=== PATIENT | female | born 1975 | race Hispanic/Latino ===

== ENCOUNTER 2020-01-12 22:15 | Emergency (ER) | payer SELFPAY ==
[2020-01-12] MEDS ORDERED: HYDROcodone/Acetaminophen 5/325 mg Tablet ONE (22:27)
[2020-01-12] MEDS ORDERED: Ketorolac Tromethamine 30 MG/ML VIAL ONE (22:27)
--- NOTE | 2020-01-12 23:12 | RAD ---
LEFT WRIST 3 VIEWS: Date: 01/12/2020 HISTORY: Status post fall. FINDINGS: There is a fracture of the distal radius. Fractures of the transversely oriented component through th e fused epiphyseal plate and slightly displaced fragment at the radioulnar joint level. I do not see a definite interarticular component at the radiocarpal joint space. No ulnar fracture is seen. IMPRESSION: Distal radial fracture. POS: OFF
== END 2020-01-12 23:16 | disposition home or self-care (01) ==
LOC: ERS 22:15
DX: S52.502A Unspecified fracture of the lower end of left radius, initial encounter for closed fracture (principal); W19.XXXA Unspecified fall, initial encounter
CPT/HCPCS: 29125; 96372; J1885

== ENCOUNTER 2020-01-13 16:25 | Emergency (ER) | payer SELFPAY ==
[2020-01-13] MEDS ORDERED: HYDROcodone/Acetaminophen 10/325 mg Tablet ONE (17:14)
[2020-01-13] MEDS ORDERED: Ondansetron ODT 4 MG TAB ONE (17:14)
[2020-01-13] MEDS ORDERED: Ketorolac Tromethamine 30 MG/ML VIAL ONE ×2 (17:14→17:16)
== END 2020-01-13 18:20 | disposition home or self-care (01) ==
LOC: ERS 16:25
DX: M25.532 Pain in left wrist (principal); S52.502D Unspecified fracture of the lower end of left radius, subsequent encounter for closed fracture with routine healing; W01.0XXD Fall on same level from slipping, tripping and stumbling without subsequent striking against object, subsequent encounter
CPT/HCPCS: 96372; 99283; J1885; Q0162

== ENCOUNTER 2020-01-14 09:54 | Outpatient (CLI) | payer OTHER ==
[2020-01-15 10:34] LABS: SARS-CoV-2 MS2 Positive; SARS-CoV-2 N Gene Negative; SARS-CoV-2 S Gene Negative; SARS-CoV-2 by NAA Not Detected (NotDetected); SARS-CoV-2 orf1ab Negative
== END 2020-01-14 09:55 | disposition home or self-care (01) ==
LOC: LABBT 09:54
PROVIDERS: ATTEND Orthopaedic Surgery
DX: S52.502A Unspecified fracture of the lower end of left radius, initial encounter for closed fracture (principal); Z20.828 Contact with and (suspected) exposure to other viral communicable diseases
CPT/HCPCS: 87635; U0003

== ENCOUNTER 2020-01-17 09:48 | Day surgery (SDC) | payer SELFPAY ==
[2020-01-16 13:07] VITALS: BMI 31.3
[2020-01-17] MEDS ORDERED: Lidocaine 1% PF 5 ML VIAL ONE (09:52)
[2020-01-17] MEDS ORDERED: Dexamethasone 20 MG/5 ML VIAL ONE (09:52)
[2020-01-17] MEDS ORDERED: Ropivacaine 0.5% HCl/PF (150 MG/30 ML VIAL) ONE (09:52)
[2020-01-17] MEDS ORDERED: EPHEDRINE 25 MG/5 ML SYRINGE ONE (09:52)
[2020-01-17] MEDS ORDERED: Ropivacaine 0.2% HCl/PF (40 MG/20 ML VIAL) ONE (09:52)
[2020-01-17] MEDS ORDERED: PROPOFOL 200 MG/20 ML VIAL ONE (09:52)
[2020-01-17] MEDS ORDERED: Ondansetron PF 4 MG/2 ML Vial ONE (09:52)
[2020-01-17] MEDS ORDERED: Midazolam HCl 2 mg/2 ml Vial ONE (11:18)
[2020-01-17] MEDS ORDERED: Fentanyl 100 MCG/2 ML VIAL ONE (11:18)
[2020-01-17] MEDS ORDERED: HYDROcodone/Acetaminophen 10/325 mg Tablet PO PRN ×2 (12:00)
[2020-01-17] MEDS ORDERED: Ondansetron PF 4 MG/2 ML Vial IVP PRN (12:00)
[2020-01-17] MEDS ORDERED: Zolpidem Tartrate 5 MG TAB PO PRN (12:00)
[2020-01-17] MEDS ORDERED: traMADol HCl 50 MG TAB PO PRN ×2 (12:00)
[2020-01-17] MEDS ORDERED: Promethazine HCl 25 MG/ML VIAL IM PRN (12:00)
[2020-01-17] MEDS ORDERED: Ketorolac Tromethamine 30 MG/ML VIAL IVP PRN (12:00)
[2020-01-17] MEDS ORDERED: Ropivacaine 0.2% 550 ML 550 ML NERVE BLCK SCH (12:00)
[2020-01-17] MEDS ORDERED: Fentanyl 100 MCG/2 ML VIAL SLOW IVP PRN (12:01)
--- NOTE | 2020-01-17 13:28 | RAD ---
XR Wrist Lt 2 View History: ORIF Comparison: Radiograph January 12, 2020 Findings: Satisfactory postoperative appearance volar plate and screw fixation distal radius. Impression: Satisfactory postoperative appearance.
--- NOTE | 2020-01-17 17:53 | OP ---
DATE OF PROCEDURE: 01/17/2020 PREOPERATIVE DIAGNOSIS: Left distal radius fracture (3 fragments). POSTOPERATIVE DIAGNOSIS: Left distal radius fracture (3 fragments). PROCEDURE PERFORMED: Open reduction and internal fixation of left distal radius. ANESTHESIA: General. CARBONIZER TESTER: Laith Sheikh PA-C TOURNIQUET TIME: 48 minutes at 250 mmHg. IMPLANTS: Synthes 2.4 mm variable angle LCP two-column volar distal radius plate. COMPLICATIONS: None. DRAINS: None. SPECIMEN: None. OUTCOME: Satisfactory. INDICATIONS: Marilyn is a 44-year-old lady, status post fall on outstretched left wrist sustaining a mildly comminuted distal radius fracture with dorsal angulation and displacement. After discussion with the patient including risks and benefits, we decided to proceed with open reduction and internal fixation. Informed consent has been obtained. I believe all questions were answered. DESCRIPTION OF PROCEDURE: The patient was brought to the operating room and a time-out performed followed by induction of general anesthesia. A sterile prep and drape were performed of the left upper extremity. The wound was exsanguinated with Esmarch bandage, tourniquet inflated to 250 mmHg. A volar radial skin incision was made after skin was sharply incised. Dissection was carried down to the radial border of the flexor carpi radialis. Dissection was then carried down reflecting the flexor digitorum muscle to the midline. The underlying pronator quadratus was released off the radial border of the distal radius and reflected to the midline revealing the underlying fracture. Under direct visualization, the fracture was reduced to a near anatomic alignment. This was followed by application of a 2.4 mm variable angle LCP two-column volar distal radial plate to the volar cortex of the distal radius. This was held in place provisionally with a cortical screw proximal to the fracture. A total of 4 locking screws were applied in the horizontal limb of the plate distally just under the articular surface. This resulted in reasonable alignment of the fracture with bahai of radial inclination, volar tilt, and radial length. Two additional screws were then applied more proximally on the plate. It should be noted that my laboratory assistant provided retraction of the radial neurovascular bundle during the course of this procedure to allow for safe application of the plate and to protect this neurovascular structure from harm. In addition to this, my laboratory assistant provided assistance with insertion of screws through the plate while I held the fracture reduced in the plate firmly affixed to the volar cortex of the radius. Once all hardware was placed, AP, lateral C-arm images were obtained that showed near anatomic alignment of the fracture. The wound was then irrigated with bulb syringe and closed in layers with 2-0 Vicryl and 4-0 nylon. Xeroform gauze and a fiberglass splint were then applied to the arm. Tourniquet was let down with total time of 48 minutes and the patient was transferred to recovery room in stable condition. There were no complications. The patient tolerated the procedure well. Job ID: [id number]
== END 2020-01-17 15:50 | disposition home or self-care (01) ==
LOC: SDC 09:48
PROVIDERS: ATTEND Orthopaedic Surgery
DX: S52.532A Colles' fracture of left radius, initial encounter for closed fracture (principal); W19.XXXA Unspecified fall, initial encounter
CPT/HCPCS: 76000; A4306; C1713; J0690; J1100; J2250; J2405; J2704; J2795; J3010